=== PATIENT | female | born 1935 | race African-American/Black ===

== ENCOUNTER 2016-11-03 04:56 | Emergency (ER) | payer MEDICARE, BC ==
[~2016-11-03 04:56] MED LIST: HYDR-3533 PO; QUIN10; VERA240CR; VITA10002 PO; WOMETAB5 PO
[2016-11-03 04:58] VITALS: BP 197/66; PULSE 82; RESP 16; TEMP 97.7; O2SAT 98
[2016-11-03] MEDS ORDERED: QUIN1TAB11 PO (05:29)
[2016-11-03] MEDS ORDERED: MULT-120 PO (05:29)
[2016-11-03] MEDS ORDERED: VERA240C3 PO (05:29)
[2016-11-03 06:03] LABS: BASOPHIL # 0.1 TH/MM3 (0-0.2); BASOPHIL % 1.4 % (0.0-2.0); EOSINOPHIL # 0.1 TH/MM3 (0-0.4); EOSINOPHIL % 0.7 % (0.0-4.0); HEMATOCRIT 35.4 % (35.0-46.0); LYMPH % 21.9 % (9.0-44.0); LYMPHOCYTE # 1.8 TH/MM3 (1.0-4.8); MEAN CORPUSCULAR HEMOGLOBIN 22.4 PG (27.0-34.0); MEAN CORPUSCULAR HGB CONC 32.1 % (32.0-36.0); MONO % 3.9 % (0.0-8.0); NEUT % 72.1 % (16.0-70.0); PLATELET COUNT 201 TH/MM3 (150-450); RED BLOOD COUNT 5.07 MIL/MM3 (4.00-5.30); RED CELL DISTRIBUTION WIDTH 16.3 % (11.6-17.2); WHITE BLOOD COUNT 8.3 TH/MM3 (4.0-11.0)
--- NOTE | 2016-11-03 06:03 | RADRPT ---
EXAM DATE/TIME: 11/03/2016 05:50 [facility] COMPARISON: CT BRAIN W/O CONTRAST, March 23, 2015, 20:50. INDICATIONS : Cephalgia with vomiting. RADIATION DOSE: 35.00 CTDIvol (mGy) MEDICAL HISTORY : Hypertension. Diabetes mellitus type 2. SURGICAL HISTORY : Hysterectomy. ENCOUNTER: Initial ACUITY: 1 day PAIN SCALE: 4/10 LOCATION: cranial TECHNIQUE: Multiple contiguous axial images were obtained of the head. Using automated exposure control and adj ustment of the mA and/or kV according to patient size, radiation dose was kept as low as reasonably a chievable to obtain optimal diagnostic quality images. FINDINGS: CEREBRUM: The ventricles are normal for age. No evidence of midline shift, mass lesion, hemorrhage or acute in farction. No extra-axial fluid collections are seen. POSTERIOR FOSSA: The cerebellum and brainstem are intact. The 4th ventricle is midline. The cerebellopontine angle i s unremarkable. EXTRACRANIAL: The visualized portion of the orbits is intact. SKULL: The calvaria is intact. No evidence of skull fracture. CONCLUSION: Normal examination for a patient of this age. No significant change has occurred. Dionicio Trejo MD on November 03, 2016 at 6:00 Board Certified Radiologist. This report was verified electronically.
[2016-11-03 06:06] LABS: HEMO FLAGS AUTO DIFF
[2016-11-03 06:14] LABS: APTT (PATIENT) 24.9 SEC (24.3-30.1); INTERNATIONAL NORMALIZED RATIO 0.9 RATIO; PROTHROMBIN TIME - PATIENT 10.4 SEC (9.8-11.6)
--- NOTE | 2016-11-03 06:16 | RADRPT ---
EXAM DATE/TIME: 11/03/2016 06:03 [facility] COMPARISON: No previous studies available for comparison. INDICATIONS : Chest pain. MEDICAL HISTORY : Hypertension. Diabetes mellitus type II. SURGICAL HISTORY : None. ENCOUNTER: Initial ACUITY: 1 day PAIN SCORE: 4/10 LOCATION: Bilateral chest FINDINGS: A single view of the chest demonstrates the lungs to be symmetrically aerated without evidence of mas s, infiltrate or effusion. The cardiomediastinal contours are unremarkable. Osseous structures are intact. CONCLUSION: No acute intrathoracic disease. Dionicio Trejo MD on November 03, 2016 at 6:14 Board Certified Radiologist. This report was verified electronically.
[2016-11-03 06:19] LABS: ANION GAP 11 MEQ/L (5-15); AST (GOT) 13 U/L (15-37); BICARBONATE 24.1 MEQ/L (21.0-32.0); BLOOD UREA NITROGEN 12 MG/DL (7-18); CHLORIDE 102 MEQ/L (98-107); GLOMERULAR FILTRATION RATE 65 ML/MIN (>89); MAGNESIUM 2.1 MG/DL (1.5-2.5); POTASSIUM 4.1 MEQ/L (3.5-5.1); SODIUM (NA) 137 MEQ/L (136-145)
[2016-11-03 06:23] LABS: ALKALINE PHOSPHATASE 104 U/L (45-117); ALT (GPT) 20 U/L (10-53); CREATINE KINASE 76 U/L (26-192); TOTAL BILIRUBIN ADULT 0.3 MG/DL (0.2-1.0)
[2016-11-03] MEDS ORDERED: LABETALOL HCL 100 MG/20 ML VIAL IV PUSH ONE (06:30)
[2016-11-03 06:40] VITALS: BP 175/82; PULSE 83; RESP 16; O2SAT 99
[2016-11-03] MEDS ORDERED: FLUO-1 PO (06:43)
[2016-11-03] MEDS ORDERED: GLYB1TAB94 PO (06:43)
[2016-11-03] MEDS ORDERED: SIMV20TA PO (06:43)
[2016-11-03] MEDS ORDERED: SITA50 PO (06:43)
[2016-11-03] MEDS ORDERED: MULT-135 PO (06:43)
[2016-11-03] MEDS ORDERED: ASPI-147 PO (06:43)
[2016-11-03 06:53] LABS: SCAN/DIFF AUTO DIFF CONFIRMED
[2016-11-03 07:16] LABS: BACTERIA, URINE RARE /hpf; BLOOD, URINE NEG (NEG); GLUCOSE,URINE 1000 mg/dL (NEG); KETONE, URINE NEG (NEG); NITRITE,URINE NEG (NEG); PH, URINE 7.5 (5.0-8.5); SQUAMOUS EPITHELIAL CELL URINE 1 /hpf (0-5); URINE COLOR LIGHT-YELLOW (YELLW/STRAW)
[2016-11-03 07:18] LABS: COMMENT (UR) CULT NOT INDICATED; CULTURE IF INDICATED CULT NOT INDICATED
[2016-11-03 07:22] VITALS: BP 159/76; PULSE 84; RESP 21; O2SAT 96
--- NOTE | 2016-11-03 07:41 | PD ---
HPI Chief Complaint: GI Complaint Time Seen by Provider: 05:16 Travel History International Travel<30 days: No Contact w/Intl Traveler<30days: No Traveled to known affect area: No History of Present Illness HPI The patient is an 81 year old female who presents to the [facility] emergency department with a history of headache, nausea and vomiting that began sometime in the evening. The patient on arrival reports that her headache has resolved. She reports that she had 2 episodes of vomiting. The patient's family report that she does have a history of headaches in the past, however none recently. They also reported that she does have a history of high blood pressure. They deny any recent changes in her blood pressure medication regimen. She last saw her primary care physician, Dr. Willingham 3 and half weeks ago. The patient denies any recent fevers, cough, congestion, neck pain, chest pain, shortness of breath, abdominal pain, diarrhea, urinary symptoms, one- sided weakness, numbness or tingling to her extremities, slurred speech, difficulty with word finding ability, changes in her vision, or dizziness. PFSH Past Medical History Narrative Medical The patient's past medical history is significant for hypertension, diabetes mellitus, history of headaches. Hx Anticoagulant Therapy: Yes (ASA) Cardiovascular Problems: Yes Diabetes: Yes Diminished Hearing: No Hypertension: Yes ?: Not Menopausal: Yes Ovarian Cysts: Yes (RUPTURED CYSTS REMOVED) Past Surgical History Narrative Surgical The patient's past surgical history is significant for a hysterectomy. Surgical History: No Previous Surgery Hysterectomy: Yes (40 yr ago) Social History Alcohol Use: No Tobacco Use: No Substance Use: No Allergies-Medications (Allergen,Severity, Reaction): Coded Allergies: No Known Allergies (Verified , 11/03/16) Reported Meds & Prescriptions Reported Meds & Active Scripts Active Macrobid (Nitrofurantoin Monoh/Nitrofur Macro) 100 Mg Cap 100 Mg PO BID 7 Days Zofran Odt (Ondansetron Odt) 4 Mg Tab 4 Mg SL Q6HR PRN Reported Ecotrin Low Strength (Aspirin) 81 Mg Tabdr 81 Mg PO DAILY Multi Vitamin (Multiple Vitamin) 1 Tab Tab 1 Tab PO DAILY Prozac (Fluoxetine HCl) 10 Mg Cap 10 Mg PO DAILY Januvia (Sitagliptin Phosphate) 50 Mg Tab 50 Mg PO DAILY Simvastatin 20 Mg Tab 20 Mg PO DAILY Glyburide-Metformin 5-500 Mg Tab 1 Tab PO BID Take with a meal Multivitamin Women (Multiple Vitamins W/ Minerals) 1 Tab Tab 1 Tab PO DAILY Quinapril (Quinapril HCl) 10 Mg Tab 10 Mg PO DAILY Verapamil SR (Verapamil HCl) 240 Mg Cap 240 Mg PO DAILY Review of Systems Except as stated in HPI: all other systems reviewed are Neg General / Constitutional: No: Fever Eyes: No: Visual changes HENT: Positive: Headaches, No: Rhinorrhea, Congestion, Neck Stiffness, Neck Pain Cardiovascular: No: Chest Pain or Discomfort Respiratory: No: Shortness of Breath Gastrointestinal: Positive: Nausea, Vomiting, No: Abdominal Pain Genitourinary: No: Dysuria Musculoskeletal: No: Pain Skin: No Rash Neurologic: Positive: Headache, No: Weakness, Focal Abnormalities, Change in Mentation, Slurred Speech, Sensory Disturbance Psychiatric: No: Depression Endocrine: No: Polydipsia Hematologic/Lymphatic: No: Easy Bruising Physical Exam Narrative General: The patient is a well-developed well-nourished female in no acute distress. Head and Neck exam: Head is normocephalic atraumatic. Eyes: EOMI, pupils are equal round and reactive to light. Nose: Midline septum with pink mucous membranes Mouth: Dentition unremarkable. Moist mucus membranes. Posterior oropharynx is not erythematous. No tonsillar hypertrophy. Uvula midline. Airway patent. Neck: No palpable lymphadenopathy. No nuchal rigidity. No thyromegaly. No spinous process tenderness to palpation,crepitus, no erythema or ecchymosis. Cardiovascular: Regular rate and rhythm without murmurs, gallops, or rubs. Lungs: Clear to auscultation bilaterally. No wheezes, rhonchi, or rales. Abdomen: Soft, without tenderness to palpation in all 4 quadrants of the abdomen. No guarding, rebound, or rigidity. Normal bowel sounds are audible. No tenderness on palpation of McBurney's point. Negative Alpine sign. Extremities: No clubbing, cyanosis, or edema. 2+ pulses in all 4 extremities. No calf tenderness on palpation. Back: No costovertebral angle tenderness to palpation. Neurologic Exam: Cranial nerves 2-12 were intact on exam. Strength is 5/5 in all 4 extremities. No sensory deficits noted. Skin Exam: No rash noted. Intact skin that is warm and dry. Data Data Last Documented VS Vital Signs Date Time Temp Pulse Resp B/P Pulse Ox O2 Delivery O2 Flow Rate FiO2 11/03/16 07:22 84 21 159/76 96 Room Air 11/03/16 04:58 97.7 Orders Blood Glucose (11/03/16 05:20) Complete Blood Count With Diff (11/03/16 05:43) Comprehensive Metabolic Panel (11/03/16 05:43) Creatine Kinase (Cpk) (11/03/16 05:43) Ckmb (Isoenzyme) Profile (11/03/16 05:43) Troponin I (11/03/16 05:43) B-Type Natriuretic Peptide (11/03/16 05:43) Prothrombin Time / Inr (Pt) (11/03/16 05:43) Act Partial Throm Time (Ptt) (11/03/16 05:43) C-Reactive Protein (Crp) (11/03/16 05:43) Lipase (11/03/16 05:43) Urinalysis - C+S If Indicated (11/03/16 05:43) Magnesium (Mg) (11/03/16 05:43) Chest, Single Ap (11/03/16 05:43) Ct Brain W/O Iv Contrast(Rout) (11/03/16 05:43) Iv Access Insert/Monitor (11/03/16 05:43) Ecg Monitoring (11/03/16 05:43) Oximetry (11/03/16 05:43) Labetalol Inj (Trandate Inj) (11/03/16 06:30) Ondansetron Inj (Zofran Inj) (11/03/16 08:00) Insulin Human Regular Inj (Novolin R Inj (11/03/16 08:00) Sodium Chlorid 0.9% 500 Ml Inj (Ns 500 M (11/03/16 08:00) Labs Laboratory Tests Test 11/03/16 11/03/16 05:50 06:50 White Blood Count 8.3 TH/MM3 Red Blood Count 5.07 MIL/MM3 Hemoglobin 11.4 GM/DL Hematocrit 35.4 % Mean Corpuscular Volume 70.0 FL Mean Corpuscular Hemoglobin 22.4 PG Mean Corpuscular Hemoglobin 32.1 % Concent Red Cell Distribution Width 16.3 % Platelet Count 201 TH/MM3 Mean Platelet Volume 9.8 FL Neutrophils (%) (Auto) 72.1 % Lymphocytes (%) (Auto) 21.9 % Monocytes (%) (Auto) 3.9 % Eosinophils (%) (Auto) 0.7 % Basophils (%) (Auto) 1.4 % Neutrophils # (Auto) 6.0 TH/MM3 Lymphocytes # (Auto) 1.8 TH/MM3 Monocytes # (Auto) 0.3 TH/MM3 Eosinophils # (Auto) 0.1 TH/MM3 Basophils # (Auto) 0.1 TH/MM3 CBC Comment AUTO DIFF Differential Comment AUTO DIFF CONFIRMED Prothrombin Time 10.4 SEC Prothromb Time International 0.9 RATIO Ratio Activated Partial 24.9 SEC Thromboplast Time Sodium Level 137 MEQ/L Potassium Level 4.1 MEQ/L Chloride Level 102 MEQ/L Carbon Dioxide Level 24.1 MEQ/L Anion Gap 11 MEQ/L Blood Urea Nitrogen 12 MG/DL Creatinine 0.99 MG/DL Estimat Glomerular Filtration 65 ML/MIN Rate Random Glucose 306 MG/DL Calcium Level 8.6 MG/DL Magnesium Level 2.1 MG/DL Total Bilirubin 0.3 MG/DL Aspartate Amino Transf 13 U/L (AST/SGOT) Alanine Aminotransferase 20 U/L (ALT/SGPT) Alkaline Phosphatase 104 U/L Total Creatine Kinase 76 U/L Troponin I LESS THAN 0.02 NG/ML C-Reactive Protein 3.80 MG/DL Total Protein 7.5 GM/DL Albumin 3.5 GM/DL Lipase 119 U/L Urine Color LIGHT-YELLOW Urine Turbidity CLEAR Urine pH 7.5 Urine Specific [place] 1.011 Urine Protein NEG mg/dL Urine Glucose (UA) 1000 mg/dL Urine Ketones NEG mg/dL Urine Occult Blood NEG Urine Nitrite NEG Urine Bilirubin NEG Urine Urobilinogen LESS THAN 2.0 MG/DL Urine Leukocyte Esterase TRACE Urine RBC LESS THAN 1 /hpf Urine WBC 1 /hpf Urine Squamous Epithelial 1 /hpf Cells Urine Bacteria RARE /hpf Microscopic Urinalysis Comment CULT NOT INDICATED MDM Medical Decision Making Medical Screen Exam Complete: Yes Emergency Medical Condition: Yes Medical Record Reviewed: Yes Differential Diagnosis Intracranial abnormality, versus viral syndrome, versus gastroenteritis, versus urinary tract infection, versus electrolyte abnormality, versus dehydration, versus poorly controlled hypertension Narrative Course During the course of the patients emergency department visit, the patients history, examination, and differential diagnosis were reviewed with the patient. The patient had IV access obtained and blood work sent for analysis. The patient was was on a cardiac/vascular sonographer with oximetry and blood pressure monitoring. The patient was initially provided labetalol 5 mg IV, Zofran 4 mg IV, normal saline a 500 mL bolus times one. The patients laboratory studies were reviewed and remarkable for a white count of 8.3, hemoglobin 11.4, platelets 201 with 72.1 neutrophils, CMP is remarkable for glucose of 306, the patient was given regular insulin 4 units subcutaneously 1, AST 13, CPK 76, troponin I less than 0.02, C-reactive protein 3.8, lipase 119, PT PTT within normal limits. Urinalysis shows 1000 glucose, trace leukocyte esterase, rare bacteria. Radiology studies were reviewed and remarkable for a CT scan that shows a normal examination for a patient of this age, no acute abnormality. Chest x- ray shows no acute abnormality. The patient was reexamined and reported feeling improved, her systolic blood pressure was in the 150s. The patient will be discharged home with a prescription for Macrobid and Zofran. The patient was instructed to follow-up with her primary care physician for reexamination in the next 2 days. The patient is resting comfortably and feels better, is alert and in no distress. The patients results and examination findings were discussed with the patient. The repeat examination is unremarkable and benign. The history, exam, diagnostic testing, and current condition do not suggest any significant pathology to warrant further testing, continued ED treatment, admission, or surgical evaluation at this point. The vital signs have been stable. The patient does not have uncontrollable pain, intractable vomiting, or other significant symptoms. The patient's condition is stable and appropriate for discharge. The patient will pursue further outpatient evaluation with a primary care physician or other designated or consulting physician as indicated in the discharge instructions. The patient expressed understanding and was agreeable with this plan. Diagnosis Primary Impression: Vomiting Qualified Code: R11.2 - Non-intractable vomiting with nausea, unspecified vomiting type Additional Impressions: Cystitis Hypertension Qualified Code: I10 - Essential hypertension Referrals: Primary Care Physician 2 days Patient Instructions: Acute Nausea and Vomiting (ED), General Instructions, Hypertension (ED), Urinary Tract Infection in Women (ED) Med/Other Pt SpecificInfo: Prescription(s) given Scripts Nitrofurantoin Monohydrate Macrocrystals (Macrobid)100 Mg [id number] Mg PO BID 7 Days Ref 0 Prov:Mireya Ross MD 11/03/16 Ondansetron Odt (Zofran Odt)4 Mg Tab4 Mg SL Q6HR PRN (Nausea/Vomiting) #7 TAB Ref 0 Prov:Mireya Ross MD 11/03/16 Disposition: 01 DISCHARGE HOME Condition: Stable Mireya Ross MD Nov 03, 2016 07:41
[2016-11-03] MEDS ORDERED: MACR100C2 PO (07:49)
[2016-11-03] MEDS ORDERED: ZOFR4TAB3 SL (07:49)
[2016-11-03] MEDS ORDERED: INSULIN HUMAN REGULAR 1,000 UNITS/10 ML VIAL SQ ONE (08:00)
[2016-11-03] MEDS ORDERED: SODIUM CHLORID 0.9% 500 ML INJ 500 ML IV ONE (08:00)
[2016-11-03] MEDS ORDERED: ONDANSETRON HCL 4 MG/2 ML VIAL IV PUSH ONE (08:00)
[2016-11-03 09:30] VITALS: BP 153/75; PULSE 80; RESP 15; O2SAT 100
== END 2016-11-03 10:43 | disposition home or self-care (01) ==
LOC: NEPC 04:56
DX: N30.90 Cystitis, unspecified without hematuria (principal); E11.9 Type 2 diabetes mellitus without complications; I10 Essential (primary) hypertension; Z79.4 Long term (current) use of insulin; Z79.82 Long term (current) use of aspirin; Z79.899 Other long term (current) drug therapy
CPT/HCPCS: 70450; 71010; 80053; 81001; 82550; 83690; 83735; 83880; 84484; 85025; 85610; 85730; 86140; 96361; 96372; 96374; 96375; 99284; J1815; J2405; J7040